=== PATIENT | male | born 1955 | race Caucasian/White ===

== ENCOUNTER 2016-12-09 09:56 | Outpatient (CLI) | payer OTHER | END 2016-12-09 09:57 | disposition home or self-care (01) | DX: G47.33 Obstructive sleep apnea (adult) (pediatric) (principal) ==

== ENCOUNTER 2017-02-22 19:16 | Outpatient (CLI) | payer OTHER | END 2017-02-22 19:17 | disposition home or self-care (01) | DX: G47.33 Obstructive sleep apnea (adult) (pediatric) (principal); Z68.34 Body mass index [BMI] 34.0-34.9, adult ==

== ENCOUNTER 2017-04-07 14:51 | Outpatient (CLI) | payer OTHER | END 2017-04-07 14:52 | disposition home or self-care (01) | LOC: SC 14:51 | PROVIDERS: ATTEND Internal Medicine Pulmonary Disease | DX: G47.33 Obstructive sleep apnea (adult) (pediatric) (principal) | CPT/HCPCS: 99212; 99213 ==

== ENCOUNTER 2017-06-16 14:05 | Outpatient (CLI) | payer OTHER | END 2017-06-16 14:06 | disposition home or self-care (01) | LOC: SC 14:05 | PROVIDERS: ATTEND Internal Medicine Pulmonary Disease | DX: G47.33 Obstructive sleep apnea (adult) (pediatric) (principal) | CPT/HCPCS: 99212; 99213 ==

== ENCOUNTER 2017-08-18 07:50 | Day surgery (SDC) | payer OTHER ==
[2017-08-18] MEDS ORDERED: LACTATED RINGERS 1,000 ML IV ONE (08:42)
[2017-08-18] MEDS ORDERED: MIDAZOLAM 2 MG/2 ML VIAL IVP ONE (09:36)
[2017-08-18] MEDS ORDERED: fentaNYL 100 MCG/2 ML VIAL IVP ONE (09:36)
[2017-08-18 10:31] VITALS: BP 139/69
== END 2017-08-18 07:51 | disposition home or self-care (01) ==
LOC: SDS 07:50
PROVIDERS: ATTEND Surgery
PROC: 0DJD8ZZ Inspection of Lower Intestinal Tract, Via Natural or Artificial Opening Endoscopic (ICD-10-PCS; principal; 2017-08-18 09:00)
DX: Z85.038 Personal history of other malignant neoplasm of large intestine (principal); K57.10 Diverticulosis of small intestine without perforation or abscess without bleeding; K64.8 Other hemorrhoids; Z98.0 Intestinal bypass and anastomosis status; I10 Essential (primary) hypertension; J45.909 Unspecified asthma, uncomplicated; F41.9 Anxiety disorder, unspecified
CPT/HCPCS: 45378; J7120

== ENCOUNTER 2017-10-24 09:55 | Outpatient (CLI) | payer OTHER ==
--- NOTE | 2017-10-24 14:25 | MRI Report ---
EXAM: RIGHT KNEE MRI WITHOUT CONTRAST EXAM DATE: 10/24/2017 11:02 AM. CLINICAL HISTORY: Internal derangement of right knee. Popping of the right knee 3 weeks ago. Medial p ain after that. Surgery more than 12 years ago. COMPARISON: None. TECHNIQUE: Multiplanar, multisequence T1-weighted and fluid-sensitive sequences of the knee without c ontrast. Other: None. FINDINGS: Bones: Reactive periarticular marrow edema is in the medial tibial plateau. A benign bone island is i n the distal femur. Articular Cartilage: Patellar cartilage is intact. A full thickness fissure is in the central trochle ar cartilage. The lateral compartment articular cartilage is intact. There is mild thinning of the me dial compartment articular cartilage. Medial Meniscus: The posterior horn of the medial meniscus demonstrates a horizontal tear (series 601 , image 7). There is a flap fragment from the inner margin of the body displaced into the coronary re cess (series 801, image 16). Lateral Meniscus: The lateral meniscus is intact. Cruciate Ligaments: The anterior and posterior cruciate ligaments are intact. Collateral Ligaments: The medial collateral and lateral collateral ligamentous structures are intact. Tendons: The quadriceps, patellar, semimembranosus, and popliteus tendons are unremarkable. Musculature: No edema or fatty atrophy. Other: A mild knee effusion is present. There is a small popliteal cyst. No loose bodies. The medial and lateral retinacula are intact. Prepatellar subcutaneous edema is present. IMPRESSION: 1. Multifocal chondromalacia. 2. Tearing of the medial meniscus. 3. Mild knee effusion. RADI MUSCULOSKELETAL RADIOLOGY SECTION Referring Provider Line: [phone] SITE ID: [id number]
== END 2017-10-24 09:56 | disposition home or self-care (01) ==
LOC: DI 09:55
PROVIDERS: ATTEND Family Medicine
DX: M94.261 Chondromalacia, right knee (principal); S83.241A Other tear of medial meniscus, current injury, right knee, initial encounter; M25.461 Effusion, right knee

== ENCOUNTER 2020-08-24 11:28 | Outpatient (CLI) | payer MEDICARE, OTHER ==
[2020-08-24 19:01] LABS: BASOPHILS % (AUTO) 0.8 %; EOSINOPHILS % (AUTO) 3.5 %; HGB - HEMOGLOBIN 14.9 g/dL (14.0-18.0); LYMPHOCYTES % (AUTO) 27.5 %; MEAN CORPUSCULAR HGB CONC 33.8 g/dL (32.0-36.0); MEAN CORPUSCULAR VOLUME 94.8 fL (80.0-94.0); MEAN PLATELET VOLUME 12.4 fL (7.4-11.4); MONOCYTES % (AUTO) 9.1 %; NEUTROPHILS % (AUTO) 58.6 %; PLT - PLATELET COUNT 241 10^3/uL (130-450); RED BLOOD COUNT 4.65 10^6/uL (4.70-6.10); RED CELL DISTRIBUTION WIDTH 12.5 % (12.0-15.0); WHITE BLOOD COUNT 7.5 x10^3/uL (4.8-10.8)
[2020-08-24 19:03] LABS: ABNORMAL LYMPHS % (MANUAL) 0 %; BAND NEUTROPHILS % (MANUAL) 0 %
[2020-08-24 19:20] LABS: ALBUMIN 4.5 g/dL (3.2-5.5); ALBUMIN/GLOBULIN RATIO 1.6 (1.0-2.2); ALKALINE PHOSPHATASE 63 IU/L (42-121); ALT ALANINE AMINOTRANSFERASE 34 IU/L (10-60); AST ASPARTATE AMINOTRANSFERASE 26 IU/L (10-42); BILIRUBIN,TOTAL 0.8 mg/dL (0.2-1.0); BUN - BLOOD UREA NITROGEN 14 mg/dL (6-20); CALCIUM 9.5 mg/dL (8.5-10.3); CARBON DIOXIDE - CO2 25 mmol/L (21-32); CHLORIDE 107 mmol/L (101-111); CHOL/HDL RATIO 5.9 (<5.0); CHOLESTEROL 219 mg/dL; CREATININE 0.7 mg/dL (0.6-1.2); GLUCOSE 104 mg/dL (70-100); HDL CHOLESTEROL 37 mg/dL; LDL CHOLESTEROL,CALCULATED 141 mg/dL; LDL/HDL RATIO 3.8 (<3.6); SODIUM 140 mmol/L (135-145); TOTAL PROTEIN 7.4 g/dL (6.7-8.2); VLDL CHOLESTEROL 41 mg/dL
[2020-08-24 20:08] LABS: BASOPHILS # (MANUAL) 0.2 10^3/uL (0-0.1); BASOPHILS % (MANUAL) 2 %; EOSINOPHILS # (MANUAL) 0.5 10^3/uL (0-0.7); LYMPHOCYTES # (MANUAL) 2.4 10^3/uL (1.5-3.5); LYMPHOCYTES % (MANUAL) 32 %; MONOCYTES # (MANUAL) 0.7 10^3/uL (0.0-1.0)
[2020-08-24 20:09] LABS: DIFFERENTIAL COMMENT MANUAL DIFFERENTIAL; PLATELET ESTIMATE, MANUAL NORMAL (130-450,000) (NORMAL); PLATELET MORPHOLOGY NORMAL APPEARANCE (NORMAL); RBC MORPHOLOGY (MULTIPLE) NORMAL APPEARANCE (NORMAL)
== END 2020-08-24 23:59 | disposition home or self-care (01) ==
LOC: LAB.WCP 11:28
PROVIDERS: ATTEND Family Medicine
DX: E78.5 Hyperlipidemia, unspecified (principal); R03.0 Elevated blood-pressure reading, without diagnosis of hypertension; Z12.5 Encounter for screening for malignant neoplasm of prostate; R68.82 Decreased libido
CPT/HCPCS: 36415; 80053; 80061; 84402; 84403; 84443; G0103; 81599; 83721; 84153

== ENCOUNTER 2020-09-26 11:32 | Outpatient (CLI) | payer MEDICARE, OTHER ==
--- NOTE | 2020-09-26 12:55 | SLEEP CARE CONSULTATION ---
Information from patient questionnaire entered by Yulisa Bardales. I have reviewed and concur with the information entered by Yulisa Bardales. This document represents the service I personally performed and the decisions made by me, Junaid Hoang MD, [facility]. History of Present Illness Service Date and Time: 09/26/2020 1132 Reason for Visit: New patient, Previously diagnosed sleep apnea (severe, AHI 39.1), sleep apnea on CPAP therapy, Re-establish care (last seen 05/2017) Date of Onset: 2000 Usual bedtime: 2200 Time it takes to fall asleep: 10 minutes Snores at night: Yes Observed to quit breathing while asleep: Yes Sleeps alone due to snoring: No Number of times waking at night: 3-4 Reasons for waking at night: reports: Bathroom, Other (mask) Toss, Turn, or Twitch while sleeping: Yes Recalls having dreams: Yes Usually gets out of bed at: 0830 Feels refreshed in the morning: Yes Morning headache: No Sleepy or fatigued during the day: Yes Ever fallen asleep while driving: No Takes day naps: No Dreams during day naps: No Prior sleep studies: Yes Year and Where: 02/2017 [facility], [address] [place] [address] Type of Sleep Study: Polysomnography Additional HPI information: I had the pleasure of seeing Mr. Sanders today regarding obstructive sleep apnea-hypopnea. As you know, he is a 65 year old gentleman who was diagnosed with the sleep-disordered breathing here in 2017. The AHI was 39.9 and enrike oxygen saturation of 85%. He was prescribed a CPAP device set at 8 15 cmH2O. He uses every night and all night. The compliance data show usage in 363 out of the past 365 nights, averaging 9.5 hours a night. The residual AHI is 5.8 and average time in large leak per day is 3 minutes. The 90th percentile pressure is 14.6 cmH2O. He wears a Resp[employer]ics AmaraView mask that a friend gave to him. He used to get his supplies from [employer]. He finds the treatment very beneficial. CPAP Compliance Data - Data Reviewed with Patient Average duration of nightly device use: 9 hours 36 minutes Compliance rate %: 99.4 Current pressure setting (cmH2O): 8-15 Humidity settin Heated hose settin Average residual AHI: 7.1 Average large leak: 5 minutes 21 seconds Subjective Initial Hardy Sleepiness Scale score: 3 (in 2020) Past Medical History Past Medical History: reports: Hypertension, Anxiety Social History The patient's occupation is retired. Patient is and lives in [place]. Have you smoked in the past 12 months: No Alcohol use: Yes Alcohol amount and frequency: 1-2/day Caffeine use: Yes Caffeine amount and frequency: 2-3 cups Family History Family history of sleep disordered breathing: No Allergies and Home Medications Drug allergies reviewed: Yes Home medication list reviewed: Yes Review of Systems Cardiovascular: reports: high blood pressure, chest pain Respiratory: denies: shortness of breath, wheeze, sputum production, chronic cough, other Gastrointestinal: denies: heartburn, difficulty swallowing, nausea, vomitting, diarrhea, abdominal pain, other Urinary: denies: incontinence, frequency, urgency, impotence, other Neurological: denies: headaches, seizure, head trauma, disorientation, speech dysfunction, gait or balance problems, fainting or unconsciousness, other Psychiatric: reports: anxiety Ear/Nose/Throat: reports: nasal congestion, wisdom teeth removed Musculoskeletal: reports: back pain Immunologic: reports: allergies to food or environment (*latex) Physical Exam Vital signs obtained and entered by: To minimize the risk of COVID-19 exposure, detailed exam was not performed. Height: 5 ft 10 in Weight: 215 lb Body Mass Index: 30.8 BMI Classification: Obese Impression and Plan IMPRESSION: 1. Obstructive Sleep Apnea-Hypopnea Syndrome, severe, as previously diagnosed. The patient has had good treatment compliance. The current pressure setting appears effective and comfortable. The patient experiences improvement on the treatment. Narrow oropharynx and obesity are common predisposing factors for obstructive sleep apnea-hypopnea syndrome. Because [facility] discontinued its CPAP business, I will establish him with a different durable medical supplier. Plan: 1. Prescription made for supplies. 2. Try to lose weight. 3. Return for follow up in a year or earlier if there is any problem. Visit Type: In Office Time Spent with Patient (minutes): 15 Provider Statement: I spent 100% of the Face to Face Visit with the patient with greater than 50% spent counseling the patient and coordination of care.
== END 2020-09-26 11:33 | disposition home or self-care (01) ==
LOC: SC 11:32
PROVIDERS: ATTEND Internal Medicine Pulmonary Disease
DX: G47.33 Obstructive sleep apnea (adult) (pediatric) (principal); E66.9 Obesity, unspecified; Z68.30 Body mass index [BMI] 30.0-30.9, adult
CPT/HCPCS: 99203; G0463; 99212

== ENCOUNTER 2022-07-31 08:59 | Day surgery (SDC) | payer MEDICARE, OTHER ==
[2022-07-31] MEDS ORDERED: LACTATED RINGERS 1,000 ML IV ONE ×2 (09:18)
[2022-07-31] MEDS ORDERED: PROPOFOL 500 MG/50 ML 500 MG/50 ML VIAL ONE (10:01)
--- NOTE | 2022-07-31 10:02 | ANESTHESIA ---
Pre-Anesthesia VS, & Labs - Diagnosis screening - Procedure colonoscopy Vital Signs: Temp Pulse Resp BP Pulse Ox 36.6 C 89 21 159/80 H 95 07/31/22 09:18 07/31/22 09:18 07/31/22 09:18 07/31/22 09:18 07/31/22 09:18 Height: 5 ft 7 in Weight (kg): 104.7 kg Body Mass Index: 36.1 BMI Classification: Obese - NPO >8 hours Home Medications and Allergies Home Medications: Ambulatory Orders Losartan [Cozaar] 50 mg PO DAILY 07/29/22 hydroCHLOROthiazide [Hydrodiuril] 25 mg PO DAILY 07/29/22 Albuterol Sulfate [Proair Hfa] 1 ea PO PRN PRN 11/27/14 PARoxetine [Paxil] 30 mg PO QPM 11/27/14 Losartan [Cozaar] 50 mg PO DAILY 07/29/22 hydroCHLOROthiazide [Hydrodiuril] 25 mg PO DAILY 07/29/22 Allergies/Adverse Reactions: Allergies Allergy/AdvReac Type Severity Reaction Status Date / Time latex AdvReac Mild Rash Verified 07/31/22 08:49 Anes History & Medical History - Anesthetic History Anesthesia Complications: reports: No previous complications - Medical History Cardiovascular: reports: Hypertension Pulmonary: reports: Asthma, Sleep apnea, CPAP use, Tuberculosis Gastrointestinal: reports: Other Urinary: reports: Kidney stones Musculoskeletal: reports: Chronic back pain Endocrine/Autoimmune: reports: None Skin: reports: Eczema Smoking Status: Never smoker History of Cancer?: Yes (colon cancer) - Surgical History General: reports: Bowel surgery, Colonoscopy Orthopedic: reports: Arthroscopic surgery, Other Exam General: Alert, Oriented x3 Dental: WNL Mouth Opening: Greater than 4 Fingerbreadths Mallampati classification: III Thyromental Distance: greater than 6 cm Respiratory: Lungs clear Cardiovascular: Regular rate Plan Anesthesia Type: Total IV Consent for Procedure(s) Verified and Reviewed: Yes Code Status: Attempt Resuscitation ASA classification: 2-Mild systemic disease Is this case an emergency?: No
[2022-07-31] MEDS ORDERED: LACTATED RINGERS 800 ML IV ONE (10:34)
[2022-07-31 10:53] VITALS: BP 123/66
--- NOTE | 2022-07-31 11:49 | ANESTHESIA POST OP EVALUATION ---
Anesthesia Post Eval - Post Anesthesia Eval Vitals: Last Vital Signs Temp 36.3 C L 07/31/22 10:52 Pulse 92 07/31/22 10:52 Resp 14 07/31/22 10:52 BP 123/66 07/31/22 10:52 Pulse Ox 95 07/31/22 10:52 CV Function Including HR & BP: Stable Pain Control: Satisfactory Nausea & Vomiting: Negative Mental Status: Baseline Respiratory Status: Airway Patent Hydration Status: Satisfactory Anesthesia Complications: None
== END 2022-07-31 09:00 | disposition home or self-care (01) ==
LOC: SDS 08:59
PROVIDERS: ATTEND Surgery
DX: Z12.11 Encounter for screening for malignant neoplasm of colon (principal); K64.8 Other hemorrhoids; K57.30 Diverticulosis of large intestine without perforation or abscess without bleeding; G47.30 Sleep apnea, unspecified; J45.909 Unspecified asthma, uncomplicated; E66.9 Obesity, unspecified; Z68.36 Body mass index [BMI] 36.0-36.9, adult; Z80.0 Family history of malignant neoplasm of digestive organs
CPT/HCPCS: G0105; J7120

== ENCOUNTER 2022-10-14 13:09 | Outpatient (CLI) | payer MEDICARE, OTHER ==
--- NOTE | 2022-10-14 13:32 | SLEEP CARE CONSULTATION ---
Information from patient questionnaire entered by Dorina Cohen. I have reviewed and concur with the information entered by Dorina Cohen. This document represents the service I personally performed and the decisions made by me, Junaid Hoang MD, [facility]. History of Present Illness Service Date and Time: 10/14/2022 1309 Reason for follow up: annual (LAST SEEN 09/2020 [facility] ) Prior sleep studies: Yes Year and Where: 02/2017 [facility] [place] Type of Sleep Study: Polysomnography HPI additional information: Mr. Sanders was diagnosed to have severe obstructive sleep apnea-hypopnea syndrome and returns today for an annual follow up of CPAP therapy. The patient purchased the device from [employer] and was fitted with a nasal mask. He uses the device nightly and all through the night. The compliance report shows that he uses the device 177 nights out of the past 180 nights, averaging 9.9 hours a night. The > 4 hour compliance rate for the past 180 days is 98%. He complains of no particular problem with the device such as soreness on the face, dry nose, epistaxis, nasal congestion or headache. He thinks that the pressure of 8 - 15 cmH2O is a little too low at the beginning of the night. On the CPAP therapy he notices improvement in his sleep quality, and that he wakes up feeling fresher in the morning and more awake/alert during the day. His notices no snore at all. Congress Sleepiness Scale score is 5. The average residual AHI is 4.8; and average time in large leak per day is 22 minutes a night. The 90th pe rcentile pressure is 15 cmH2O. Sleep Study - Results Type of Sleep Study: Polysomnography Prior sleep studies: Yes Year and Where: 02/2017 [facility], [address] [place], [place] CPAP Compliance Data - Data Reviewed with Patient Average duration of nightly device use: 9HRS, 51MIN, 55SEC Compliance rate %: 98.9 (04/03/2022-09/29/2022) Current pressure setting (cmH2O): 8-15 Average residual AHI: 4.8 Subjective Initial Congress Sleepiness Scale score: 3 Current Congress Sleepiness Scale score: 5 (10/14/2022) Allergies and Home Medications Drug allergies reviewed: Yes Home medication list reviewed: Yes Allergy and home medication list: Allergies latex Adverse Reaction (Mild, Verified 07/31/22 08:49) Rash Review of Systems Review of systems same as previous: Yes Physical Exam Vital signs obtained and entered by: DORINA Daniel MA Blood Pressure: 142/80 (LEFT ARM) Cuff size: regular Heart Rate: 73 O2 Saturation: 96 Height: 5 ft 7 in Weight: 240 lb Body Mass Index: 37.5 BMI Classification: Obese Impression and Plan IMPRESSION: 1. Obstructive Sleep Apnea-Hypopnea Syndrome, severe, with the patient continuing to do well on nasal CPAP therapy. He has excellent compliance and significant clinical benefits. The current pressure appears effective and comfortable. Overall, he is very satisfied with treatment and plans to continue with it long-term. Because the CPAP is now older than the useful life of 5 years, I will order the patient a new one and make it an autoCPAP set between 8 and 15 cmH2O. PLAN: 1. Continue with autoCPAP set at 8 - 15 cm H2O. 2. Prescription made for an autoCPAP, heated humidifier, and related supplies through [facility]. 3. Try to lose weight. 4. Return for follow up after one month of using the CPAP. Prescriptions: Auto CPAP Follow up with Sleep Care in: 1-2 months Visit Type: In Office Time Spent with Patient (minutes): 15 Provider Statement: I spent 100% of the Face to Face Visit with the patient with greater than 50% spent counseling the patient and coordination of care.
[2022-10-14 13:59] VITALS: BP 142/80
== END 2022-10-14 13:10 | disposition home or self-care (01) ==
LOC: SC 13:09
PROVIDERS: ATTEND Internal Medicine Pulmonary Disease
DX: G47.33 Obstructive sleep apnea (adult) (pediatric) (principal); E66.9 Obesity, unspecified; Z68.37 Body mass index [BMI] 37.0-37.9, adult
CPT/HCPCS: 99212; G0463

== ENCOUNTER 2022-11-27 08:11 | Outpatient (CLI) | payer MEDICARE, OTHER ==
[2022-11-27 08:27] LABS: BASOPHILS # (AUTO) 0.1 10^3/uL (0.0-0.1); BASOPHILS % (AUTO) 0.8 %; EOSINOPHILS % (AUTO) 0.1 %; HCT - HEMATOCRIT 44.7 % (42.0-52.0); LYMPHOCYTES % (AUTO) 27.1 %; MEAN CORPUSCULAR HEMOGLOBIN 31.2 pg (27.0-31.0); MEAN CORPUSCULAR HGB CONC 33.6 g/dL (32.0-36.0); MEAN CORPUSCULAR VOLUME 92.9 fL (80.0-94.0); MEAN PLATELET VOLUME 10.7 fL (7.4-11.4); MONOCYTES # (AUTO) 0.6 10^3/uL (0.0-1.0); MONOCYTES % (AUTO) 8.4 %; NEUTROPHILS # (AUTO) 4.6 10^3/uL (1.5-6.6); NEUTROPHILS % (AUTO) 63.2 %; PLT - PLATELET COUNT 243 10^3/uL (130-450); RED BLOOD COUNT 4.81 10^6/uL (4.70-6.10); RED CELL DISTRIBUTION WIDTH 12.1 % (12.0-15.0); WHITE BLOOD COUNT 7.2 x10^3/uL (4.8-10.8)
[2022-11-27 09:12] LABS: ALBUMIN 4.2 g/dL (3.2-5.5); ALBUMIN/GLOBULIN RATIO 1.4 (1.0-2.2); ALKALINE PHOSPHATASE 77 IU/L (42-121); ALT ALANINE AMINOTRANSFERASE 37 IU/L (10-60); AST ASPARTATE AMINOTRANSFERASE 28 IU/L (10-42); BILIRUBIN,TOTAL 0.9 mg/dL (0.2-1.0); BUN - BLOOD UREA NITROGEN 13 mg/dL (6-20); CALCIUM 8.9 mg/dL (8.5-10.3); CARBON DIOXIDE - CO2 25 mmol/L (21-32); CHLORIDE 103 mmol/L (101-111); CHOL/HDL RATIO 6.1 (<5.0); CHOLESTEROL 239 mg/dL; CREATININE 0.9 mg/dL (0.6-1.2); GFR - MDRD 84 (>89); GLUCOSE 145 mg/dL (70-100); HDL CHOLESTEROL 39 mg/dL; LDL CHOLESTEROL,CALCULATED 159 mg/dL; LDL/HDL RATIO 4.1 (<3.6); POTASSIUM 4.1 mmol/L (3.5-5.0); SODIUM 136 mmol/L (135-145); TOTAL PROTEIN 7.3 g/dL (6.7-8.2); TRIGLYCERIDES 206 mg/dL; VLDL CHOLESTEROL 41 mg/dL
[2022-11-27 10:32] LABS: ESTIMATED AVERAGE GLUCOSE 137 mg/dL (70-100); HEMOGLOBIN A1c% 6.4 % (4.27-6.07)
[2022-11-27 11:26] LABS: THYROID STIMULATING HORMONE 1.33 uIU/mL (0.34-5.60)
== END 2022-11-27 08:12 | disposition home or self-care (01) ==
LOC: LAB 08:11
PROVIDERS: ATTEND Family Medicine
DX: I10 Essential (primary) hypertension (principal); Z12.5 Encounter for screening for malignant neoplasm of prostate; R53.83 Other fatigue; D50.9 Iron deficiency anemia, unspecified; K57.90 Diverticulosis of intestine, part unspecified, without perforation or abscess without bleeding; G47.30 Sleep apnea, unspecified; J45.909 Unspecified asthma, uncomplicated; F41.1 Generalized anxiety disorder; R73.9 Hyperglycemia, unspecified
CPT/HCPCS: 36415; 80053; 80061; 83036; 84443; 85025; G0103; 83721; 84153

== ENCOUNTER 2022-12-18 09:19 | Emergency (ER) | payer MEDICARE, OTHER ==
[2022-12-18 10:16] LABS: BASOPHILS % (AUTO) 0.7 %; EOSINOPHILS # (AUTO) 0.2 10^3/uL (0.0-0.7); EOSINOPHILS % (AUTO) 3.2 %; HCT - HEMATOCRIT 39.2 % (42.0-52.0); LYMPHOCYTES # (AUTO) 1.4 10^3/uL (1.5-3.5); LYMPHOCYTES % (AUTO) 23.3 %; MEAN CORPUSCULAR HEMOGLOBIN 30.7 pg (27.0-31.0); MEAN CORPUSCULAR HGB CONC 33.2 g/dL (32.0-36.0); MEAN CORPUSCULAR VOLUME 92.7 fL (80.0-94.0); MEAN PLATELET VOLUME 11.3 fL (7.4-11.4); MONOCYTES # (AUTO) 0.5 10^3/uL (0.0-1.0); MONOCYTES % (AUTO) 8.9 %; NEUTROPHILS # (AUTO) 3.8 10^3/uL (1.5-6.6); NEUTROPHILS % (AUTO) 63.4 %; PLT - PLATELET COUNT 241 10^3/uL (130-450); RED BLOOD COUNT 4.23 10^6/uL (4.70-6.10); WHITE BLOOD COUNT 5.9 x10^3/uL (4.8-10.8)
[2022-12-18 10:21] LABS: INR 1.1 (0.8-1.2)
[2022-12-18 10:27] LABS: ALBUMIN 3.7 g/dL (3.2-5.5); ALBUMIN/GLOBULIN RATIO 1.2 (1.0-2.2); BILIRUBIN,TOTAL 0.7 mg/dL (0.2-1.0); CALCIUM 8.7 mg/dL (8.5-10.3); CREATININE 0.7 mg/dL (0.6-1.2); POTASSIUM 3.9 mmol/L (3.5-5.0); TOTAL PROTEIN 6.8 g/dL (6.7-8.2)
[2022-12-18] MEDS ORDERED: SODIUM CHLORIDE 0.9% 1,000 ML IV STA (10:27)
[2022-12-18] MEDS ORDERED: iohexoL-300 100 ML VIAL ONE (10:33)
--- NOTE | 2022-12-18 12:00 | CT Report ---
PROCEDURE: ABDOMEN/PELVIS W INDICATIONS: L sided abd pain/rectal bleeding/ CONTRAST: 100ml Omnipaque 300 TECHNIQUE: After the administration of contrast, 5 mm thick sections acquired from the diaphragms to the sym physis. 5 mm thick coronal and sagittal reformats were acquired. For radiation dose reduction, the following was used: automated exposure control, adjustment of mA and/or kV according to patient size . COMPARISON: 02/14/2015 FINDINGS: Image quality: Excellent. ABDOMEN: Lung bases: Lung bases are clear. Heart size is normal. Solid organs: Liver and spleen are normal in size and enhancement. Gallbladder unremarkable. Small hiatal hernia Biliary system is non dilated. Pancreas enhances normally. No adrenal nodules. Kidn eys demonstrate normal size and enhancement, without hydronephrosis. Hepatic fatty infiltration pres ent. Peritoneum and bowel: Multiple diverticuli arise from the sigmoid and descending colon. Inflammatory change noted at the proximal sigmoid consistent with diverticulitis. No abscess or free air. No obstr uction. Nodes and vessels: No retroperitoneal or mesenteric adenopathy by size criteria. Aorta and inferior vena cava are normal in size. Miscellaneous: No ventral hernias. PELVIS: Genitourinary: Bladder wall thickness is normal. Miscellaneous: No inguinal hernias or adenopathy. Bones: No suspicious bony lesions. No vertebral body compression fractures. IMPRESSION: 1. Uncomplicated sigmoid diverticulitis. No abscess, obstruction or free air. Reviewed by: Manolo Gibbons MD on 12/18/2022 10:58 AM [facility] Approved by: Manolo Gibbons MD on 12/18/2022 10:58 AM [place] Station ID: [id number]
[2022-12-18 12:24] LABS: HCT - HEMATOCRIT 39.6 % (42.0-52.0)
[2022-12-18] MEDS ORDERED: AMOX/CLAV 875 MG/125 MG TABLET PO STA (12:25)
--- NOTE | 2022-12-18 13:09 | ED Physician Documentation ---
PD HPI ABD PAIN - Stated complaint Stated Complaint: BLOOD IN FECES/LIGHT HEADED - Chief complaint Chief Complaint: Abd Pain - History obtained from History obtained from: Patient - Additional information Additional information: Patient is a 67-year-old male with a history of colon cancer status post colon resection in remission presenting for evaluation of bloody stools. Recently he has been having some left-sided abdominal pain.He was seen at the walk-in clinic and they thought it could be a kidney stone but his urine was negative for blood. He was also seen by his PCP who felt that it could be colitis and did not recommend any treatment. Yesterday and this morning he had a bowel movement and noticed blood in the toilet. He also reports having some lower abdominal cramping. He was feeling lightheaded this morning. He last had a colonoscopy [address] Sultana. He does not take a blood thinner. He denies nausea or vomiting and reports normal appetite.He denies fever. Review of Systems Constitutional: denies: Fever Cardiac: denies: Chest pain / pressure Respiratory: denies: Dyspnea GI: reports: Abdominal Pain, Bloody / black stool. denies: Vomiting : denies: Dysuria Musculoskeletal: denies: Back pain Neurologic: denies: Headache PD PAST MEDICAL HISTORY - Past Medical History Past Medical History: Yes Cardiovascular: Hypertension Respiratory: Asthma, Sleep apnea, CPAP use, Tuberculosis Endocrine/Autoimmune: None GI: Other : Kidney stones HEENT: Chronic vision loss, Chronic hearing loss Psych: Anxiety, Panic attacks Musculoskeletal: Chronic back pain Derm: Eczema Other Past Medical History: Colon CA 5 years ago - Past Surgical History Past Surgical History: Yes General: Bowel surgery, Colonoscopy Ortho: Arthroscopic surgery, Other - Present Medications Home Medications: Ambulatory Orders Medication Instructions Recorded Confirmed Albuterol Sulfate [Proair Hfa] 1 ea PO PRN PRN 11/27/14 10/14/22 PARoxetine [Paxil] 30 mg PO QPM 11/27/14 10/14/22 Losartan [Cozaar] 50 mg PO DAILY 07/29/22 10/14/22 hydroCHLOROthiazide [Hydrodiuril] 25 mg PO DAILY 07/29/22 10/14/22 Amox/Clav 875/125 [Augmentin] 1 each PO Q12H #20 tablet 12/18/22 - Allergies Allergies/Adverse Reactions: Allergies Allergy/AdvReac Type Severity Reaction Status Date / Time latex AdvReac Mild Rash Verified 12/18/22 09:27 - Social History Does the pt smoke?: No Smoking Status: Never smoker Does the pt drink ETOH?: Yes Does the pt have substance abuse?: No - Immunizations Immunizations are current?: Yes PD ED PE NORMAL - General General: Alert and oriented X 3, No acute distress, Well developed/nourished - HEENT HEENT: Atraumatic - Neck Neck: Supple, no meningeal sign - Cardiac Cardiac: RRR - Respiratory Respiratory: No respiratory distress, Clear bilaterally - Abdomen Abdomen: Normal bowel sounds, Soft, Non distended, Other (Left lower quadrant tenderness; No rebound, no guarding, no mass) - Rectal Rectal: Deferred (Patient had a bowel movement Upon arrival and Visible blood noted mixed with stools) - Derm Derm: Warm and dry - Extremities Extremities: No edema - Neuro Neuro: Alert and oriented X 3, No motor deficit, Normal speech Results - Vitals Vitals: Vital Signs - 24 hr 12/18/22 12/18/22 12/18/22 09:23 11:26 13:16 Temperature 36.2 C L Heart Rate 87 80 59 L Respiratory 16 12 19 Rate Blood Pressure 183/71 H 141/59 H 136/60 H O2 Saturation 98 100 99 Oxygen O2 Source Room air - EKG (time done) 1057 Rate: Rate (enter#) (65) Rhythm: NSR [place]: Normal Ischemia: No: ST elevation c/w ischemia - Labs Labs: Microbiology 12/18/22 09:40 Occult Blood - Final Stool Laboratory Tests 12/18/22 12/18/22 12/18/22 10:08 10:08 10:08 WBC 5.9 RBC 4.23 L Hgb 13.0 L Hct 39.2 L MCV 92.7 MCH 30.7 MCHC 33.2 RDW 12.0 Plt Count 241 MPV 11.3 Neut # (Auto) 3.8 Lymph # (Auto) 1.4 L [place] # (Auto) 0.5 Eos # (Auto) 0.2 Baso # (Auto) 0.0 Absolute Nucleated RBC 0.00 Nucleated RBC % 0.0 PT 12.0 INR 1.1 Sodium 133 L Potassium 3.9 Chloride 99 L Carbon Dioxide 21 Anion Gap 13.0 BUN 11 Creatinine 0.7 Estimated GFR (MDRD) 112 Glucose 277 H Calcium 8.7 Total Bilirubin 0.7 AST 22 ALT 46 Alkaline Phosphatase 85 Total Protein 6.8 Albumin 3.7 Globulin 3.1 Albumin/Globulin Ratio 1.2 Lipase 31 Blood Type Blood Type Recheck Antibody Screen 12/18/22 12/18/22 12/18/22 10:08 12:16 12:16 WBC RBC Hgb 13.0 L Hct 39.6 L MCV MCH MCHC RDW Plt Count MPV Neut # (Auto) Lymph # (Auto) [place] # (Auto) Eos # (Auto) Baso # (Auto) Absolute Nucleated RBC Nucleated RBC % PT INR Sodium Potassium Chloride Carbon Dioxide Anion Gap BUN Creatinine Estimated GFR (MDRD) Glucose Calcium Total Bilirubin AST ALT Alkaline Phosphatase Total Protein Albumin Globulin Albumin/Globulin Ratio Lipase Blood Type O POSITIVE Blood Type Recheck O POSITIVE Antibody Screen NEGATIVE PD Medical Decision Making - ED course Complexity details: reviewed results, re-evaluated patient, d/w patient, d/w family ED course: Patient presenting for evaluation of abdominal pain and blood in his stools. His vital signs are stable. His hemoglobin is 13 which is slightly decreased from previous labs. I did repeat the hemoglobin after a few hours and it remained unchanged. Patient did have 1 episode of blood in his stools here but has not had further episodes. His chemistry panel is reviewed and noted to have elevated blood glucose. It does not appear to be in DKA. Recent A1c is 6.4 and patient appears to have follow-up with Dr. Hi regarding his blood glucose.His CT scan shows sigmoid diverticulitis with no signs of abscess or perforation. He is feeling better here with IV fluids. He is tolerating p.o. He is comfortable with plan for discharge with continued antibiotic treatment. He is advised on need for follow-up with his PCP. Departure - Departure Disposition: 01 Home, Self Care Clinical Impression: Diverticulitis Condition: Stable Instructions: ED Diverticulitis Follow-Up: Louie Dubon MD [Provider Admit Priv/Credential] - Prescriptions: Amox/Clav 875/125 [Augmentin] 1 each PO Q12H #20 tablet Comments: Your CT scan shows that you have diverticulitis which is inflammation in your intestinal tract. This is likely also causing the blood in your stools. Going to start you on an antibiotic called Augmentin and have sent this prescription to [facility] in [place]. Please make sure to take the antibiotic as directed. Would also recommend close follow-up with your primary care doctor. If it anytime you have any worsening symptoms such as feeling dizzy, have fevers, increased pain or any other concerns please consider return to the emergency department. Discharge Date/Time: 12/18/22 13:24
[2022-12-18 13:16] VITALS: BP 136/60
[2022-12-18] MEDS ORDERED: iohexoL-300 100 ML VIAL IVP ONE (15:29)
== END 2022-12-18 13:24 | disposition home or self-care (01) ==
LOC: ED 09:19
DX: K57.92 Diverticulitis of intestine, part unspecified, without perforation or abscess without bleeding (principal); I10 Essential (primary) hypertension; Z85.038 Personal history of other malignant neoplasm of large intestine
CPT/HCPCS: 36415; 74177; 80053; 82272; 83690; 85014; 85018; 85025; 85610; 86850; 86900; 86901; 93005; 99283; 99284; A9270; Q9967

== ENCOUNTER 2023-06-10 08:55 | Outpatient (CLI) | payer MEDICARE, OTHER ==
[2023-06-10] MEDS ORDERED: iohexoL-300 100 ML VIAL ONE (09:13)
[2023-06-10 09:55] LABS: CREATININE 0.8 mg/dL (0.6-1.3)
[2023-06-10] MEDS ORDERED: DIATRIZOATE MEGLU/DIATRIZO SOD 30 ML BOTTLE PO ONE (10:33)
[2023-06-10] MEDS ORDERED: iohexoL-300 100 ML VIAL IVP ONE (10:34)
--- NOTE | 2023-06-10 16:16 | CT Report ---
PROCEDURE: ABDOMEN/PELVIS W INDICATIONS: DIVERTICULITIS CONTRAST: 100ml Omni 300 TECHNIQUE: After the administration of contrast, 5 mm thick sections acquired from the diaphragms to the symphys is. 5 mm thick coronal and sagittal reformats were acquired. For radiation dose reduction, the foll owing was used: automated exposure control, adjustment of mA and/or kV according to patient size. COMPARISON: FINDINGS: Image quality: Excellent. Lung bases and heart: Unremarkable. There is a small hiatal hernia. Liver: No solid mass. Gallbladder and biliary tree: Spleen: No splenomegaly. Pancreas: No pancreatic ductal dilation. Adrenals: No adrenal nodule. Kidneys and ureters: No hydronephrosis. No renal cystic lesion which requires follow up. No solid mas s. Bowel and peritoneum: No bowel distension. No pathologic free fluid. There is a gas-filled duodenal d iverticulum. There are extensive sigmoid colon diverticular outpouchings. The previously visualized w all thickening and fat stranding within the sigmoid colon has resolved. Patient is status post right hemicolectomy. Lymph nodes: No central or retroperitoneal adenopathy. Vessels: No infrarenal aortic aneurysm. PELVIS Reproductive organs: Unremarkable. Bladder: No abnormal wall thickening, accounting for underdistension. Pelvic lymph nodes: No pelvic adenopathy by size criteria. Bones: No aggressive osseous abnormality. Other: No significant ventral or inguinal hernia. IMPRESSION: 1. Small hiatal hernia. 2. Previously visualized mild sigmoid diverticulitis has resolved. No acute intra-abdominal findings. Reviewed by: Aranza Carr MD on 06/10/2023 4:15 PM PDT Approved by: Aranza Carr MD on 06/10/2023 4:15 PM PDT Station ID: [id number]
== END 2023-06-10 08:56 | disposition home or self-care (01) ==
LOC: LAB 08:55
PROVIDERS: ATTEND Family Medicine
DX: Z09 Encounter for follow-up examination after completed treatment for conditions other than malignant neoplasm (principal); Z87.19 Personal history of other diseases of the digestive system; K44.9 Diaphragmatic hernia without obstruction or gangrene
CPT/HCPCS: 36415; 74177; 82565; Q9963; Q9967

== ENCOUNTER 2023-10-29 09:25 | Day surgery (SDC) | payer MEDICARE, OTHER ==
[2023-10-29] MEDS ORDERED: LACTATED RINGERS 1,000 ML IV ONE (09:29)
--- NOTE | 2023-10-29 09:45 | ANESTHESIA ---
Pre-Anesthesia VS, & Labs - Diagnosis screening, family hx - Procedure colonoscopy Height: 5 ft 8 in Weight (kg): 102 kg Body Mass Index: 34.2 BMI Classification: Obese - NPO >8 hours Last Fluid Intake: am prep - Lab Results Lab results reviewed: Yes Home Medications and Allergies Albuterol Sulfate [Proair Hfa] 1 ea PO PRN PRN 11/27/14 PARoxetine [Paxil] 30 mg PO QPM 11/27/14 Losartan [Cozaar] 50 mg PO DAILY 07/29/22 Allergies/Adverse Reactions: Allergies Allergy/AdvReac Type Severity Reaction Status Date / Time latex AdvReac Mild Rash Verified 10/29/23 09:34 Hay Allergy Respiratory Uncoded 10/29/23 09:34 Anes History & Medical History - Anesthetic History Anesthesia Complications: reports: No previous complications Family history of Anesthesia Complications: Denies Family history of Malignant Hyperthermia: Denies - Medical History Cardiovascular: reports: Hypertension Pulmonary: reports: Asthma, Sleep apnea, CPAP use, Tuberculosis Gastrointestinal: reports: Other Urinary: reports: Kidney stones Musculoskeletal: reports: Chronic back pain Endocrine/Autoimmune: reports: None Skin: reports: Eczema Smoking Status: Never smoker History of Cancer?: No - Surgical History General: reports: Bowel surgery, Colonoscopy Orthopedic: reports: Arthroscopic surgery, Other Exam General: Alert, Oriented x3, Cooperative Plan Anesthesia Type: Total IV Consent for Procedure(s) Verified and Reviewed: Yes Code Status: Attempt Resuscitation ASA classification: 2-Mild systemic disease Is this case an emergency?: No
[2023-10-29] MEDS ORDERED: PROPOFOL 500 MG/50 ML 500 MG/50 ML VIAL ONE (10:26)
[2023-10-29] MEDS ORDERED: MIDAZOLAM 2 MG/2 ML VIAL ONE (10:26)
[2023-10-29] MEDS ORDERED: LACTATED RINGERS 300 ML IV ONE (10:58)
[2023-10-29 11:13] VITALS: BP 129/74; O2SAT 98
--- NOTE | 2023-10-29 12:46 | ANESTHESIA POST OP EVALUATION ---
Anesthesia Post Eval - Post Anesthesia Eval Vitals: Last Vital Signs Temp 36.5 C 10/29/23 10:58 Pulse 69 10/29/23 11:13 Resp 14 10/29/23 11:13 BP 129/74 10/29/23 11:13 Pulse Ox 98 10/29/23 11:13 O2 Flow Rate CV Function Including HR & BP: Stable Pain Control: Satisfactory Nausea & Vomiting: Negative Mental Status: Baseline Respiratory Status: Airway Patent Hydration Status: Satisfactory Anesthesia Complications: None
== END 2023-10-29 09:26 | disposition home or self-care (01) ==
LOC: SDS 09:25
PROVIDERS: ATTEND Surgery
DX: K57.30 Diverticulosis of large intestine without perforation or abscess without bleeding (principal); I10 Essential (primary) hypertension; G47.33 Obstructive sleep apnea (adult) (pediatric); E66.9 Obesity, unspecified; K64.1 Second degree hemorrhoids; J45.909 Unspecified asthma, uncomplicated; Z68.34 Body mass index [BMI] 34.0-34.9, adult; Z80.0 Family history of malignant neoplasm of digestive organs; Z85.038 Personal history of other malignant neoplasm of large intestine; Z90.49 Acquired absence of other specified parts of digestive tract; Z92.21 Personal history of antineoplastic chemotherapy
CPT/HCPCS: 45378; J7120

== ENCOUNTER 2023-10-31 09:25 | Outpatient (CLI) | payer MEDICARE, OTHER ==
--- NOTE | 2023-11-01 08:08 | Ultrasound Report ---
PROCEDURE: Bladder INDICATIONS: LOWER ABD PAIN TECHNIQUE: Real-time scanning was performed of the kidneys and bladder, with image documentation. COMPARISON: CT abdomen and pelvis, 06/10/2023 FINDINGS: Bladder: Pre-void bladder volume is 83 mL. Post-void residual is 17 mL. Pre-void images demonstrat e no intraluminal masses or stones. On pre-void images, both ureteral jets are noted with color Dopp ler interrogation. (Of note, ureteral jets may not be detectable in up to 25% of cases due to insuff icient differences in specific gravity between ureteral and bladder urine). Prostate measures 3.4 x 3.1 x 4.6 cm with an estimated volume of 25 cc. Miscellaneous: No free pelvic fluid. IMPRESSION: 1. Normal ultrasound appearance of urinary bladder. 2. 17 cc post void residual. Reviewed by: Dao Lentz MD on 11/01/2023 8:07 AM PST Approved by: Dao Lentz MD on 11/01/2023 8:07 AM PST Station ID: [id number]
== END 2023-10-31 09:26 | disposition home or self-care (01) ==
LOC: DI 09:25
PROVIDERS: ATTEND Surgery
DX: R10.2 Pelvic and perineal pain (principal); R33.9 Retention of urine, unspecified

== ENCOUNTER 2024-08-04 10:13 | Outpatient (CLI) | payer MEDICARE, OTHER ==
[2024-08-04 10:31] LABS: BASOPHILS % (AUTO) 0.4 %; EOSINOPHILS # (AUTO) 0.1 10^3/uL (0.0-0.7); EOSINOPHILS % (AUTO) 1.6 %; HCT - HEMATOCRIT 44.7 % (42.0-52.0); HGB - HEMOGLOBIN 15.2 g/dL (14.0-18.0); LYMPHOCYTES % (AUTO) 29.4 %; MEAN CORPUSCULAR HEMOGLOBIN 31.7 pg (27.0-31.0); MEAN CORPUSCULAR VOLUME 93.1 fL (80.0-94.0); MEAN PLATELET VOLUME 11.8 fL (7.4-11.4); MONOCYTES # (AUTO) 0.6 10^3/uL (0.0-1.0); MONOCYTES % (AUTO) 8.6 %; NEUTROPHILS % (AUTO) 59.9 %; PLT - PLATELET COUNT 214 10^3/uL (130-450); RED CELL DISTRIBUTION WIDTH 11.8 % (12.0-15.0); WHITE BLOOD COUNT 6.7 x10^3/uL (4.8-10.8)
[2024-08-04 11:00] LABS: THYROID STIMULATING HORMONE 1.2 uIU/mL (0.34-5.60)
[2024-08-04 11:59] LABS: ESTIMATED AVERAGE GLUCOSE 258 mg/dL (70-100); HEMOGLOBIN A1c% 10.6 % (4.27-6.07)
[2024-08-04 13:42] LABS: ALBUMIN 4.5 g/dL (3.2-5.5); ALBUMIN/GLOBULIN RATIO 1.8 (1.0-2.2); ALKALINE PHOSPHATASE 120 IU/L (42-121); ALT ALANINE AMINOTRANSFERASE 30 IU/L (10-60); AST ASPARTATE AMINOTRANSFERASE 20 IU/L (10-42); BILIRUBIN,TOTAL 0.7 mg/dL (0.2-1.0); BUN - BLOOD UREA NITROGEN 10 mg/dL (6-20); CALCIUM 9.6 mg/dL (8.5-10.3); CARBON DIOXIDE - CO2 28 mmol/L (21-32); CHLORIDE 100 mmol/L (101-111); CHOL/HDL RATIO 5.7 (<5.0); CHOLESTEROL 215 mg/dL; CREATININE 0.8 mg/dL (0.6-1.3); GFR - MDRD 96 (>89); GLUCOSE 342 mg/dL (74-104); HDL CHOLESTEROL 38 mg/dL; LDL CHOLESTEROL,CALCULATED 133 mg/dL; LDL/HDL RATIO 3.5 (<3.6); POTASSIUM 4.3 mmol/L (3.5-4.5); SODIUM 135 mmol/L (135-145); TRIGLYCERIDES 222 mg/dL; VLDL CHOLESTEROL 44 mg/dL
== END 2024-08-04 10:14 | disposition home or self-care (01) ==
LOC: LAB 10:13
PROVIDERS: ATTEND Family Medicine
DX: N20.0 Calculus of kidney (principal); G47.33 Obstructive sleep apnea (adult) (pediatric); F41.0 Panic disorder [episodic paroxysmal anxiety]; R73.9 Hyperglycemia, unspecified; Z12.5 Encounter for screening for malignant neoplasm of prostate; Z85.038 Personal history of other malignant neoplasm of large intestine; I10 Essential (primary) hypertension; J45.909 Unspecified asthma, uncomplicated
CPT/HCPCS: 36415; 80053; 80061; 83036; 84443; 85025; G0103; 83721; 84153